=== PATIENT | male | born 1995 | race Asian ===

== ENCOUNTER 2024-02-18 21:12 | Emergency (ER) | payer BC ==
[2024-02-18] MEDS ORDERED: Ondansetron PF 4 MG/2 ML Vial ONE (22:38)
[2024-02-18] MEDS ORDERED: Ketorolac Tromethamine 30 MG (1 mL) VIAL ONE (23:41)
== END 2024-02-19 01:23 | disposition home or self-care (01) ==
LOC: CSHERS 21:12
DX: E86.0 Dehydration (principal); R11.2 Nausea with vomiting, unspecified; R19.7 Diarrhea, unspecified
CPT/HCPCS: 96361; 96374; 96375; J1885; J2405